=== PATIENT | female | born 1985 | race African-American/Black ===

== ENCOUNTER 2017-10-15 16:14 | Emergency (ER) | payer OTHER ==
[~2017-10-15] VITALS: Ht 157.5 cm; Wt 50.8 kg
[2017-10-15] MEDS ORDERED: ZYRTEC10 M5 PO (16:23)
[2017-10-15] MEDS ORDERED: FLONASE 0.05%50 MCG NASAL (16:24)
[2017-10-15] MEDS ORDERED: EYE DROPS (16:24)
[2017-10-15 17:14] LABS: URINE BILIRUBIN NEGATIVE (Negative); URINE BLOOD NEGATIVE (Negative); URINE CLARITY CLEAR; URINE COLOR YELLOW; URINE GLUCOSE-RANDOM NEGATIVE (Negative); URINE KETONES TRACE (Negative); URINE LEUKOCYTES-REFLEX NEGATIVE (Negative); URINE NITRITE-REFLEX NEGATIVE (Negative); URINE PROTEIN NEGATIVE (Negative)
[2017-10-15 17:17] LABS: HEMATOCRIT 32.7 % (37.0-47.0); HEMOGLOBIN 10.7 gm/dL (12.0-15.0); MCH 20.2 pg (26.0-34.0); MCHC 32.7 g/dL (28.0-37.0); MCV 61.8 fL (80.0-100.0); MPV 8.6 fl. (7.2-11.1); RBC 5.29 mil/uL (4.20-5.00); RDW-CV 18.9 % (10.5-14.5); WBC 8.4 thou/uL (4.0-11.0)
[2017-10-15 17:33] LABS: CALCIUM 8.8 mg/dL (8.5-10.1); CREATININE 0.7 mg/dL (0.6-1.3); POTASSIUM 3.7 mmol/L (3.5-5.1)
[2017-10-15 17:38] LABS: ALBUMIN 3.8 g/dL (3.4-5.0); TOTAL BILIRUBIN 0.3 mg/dL (<0.1-1.0); TOTAL PROTEIN 8.2 g/dL (6.4-8.2)
[2017-10-15 18:25] VITALS: BP 107/71
== END 2017-10-15 18:26 | disposition home or self-care (01) ==
LOC: M.ERS 16:14
PROVIDERS: Physician Assistant
DX: R51 Headache (principal)